=== PATIENT | male | born 1945 | race Caucasian/White ===

== ENCOUNTER 2018-08-22 05:05 | Inpatient (IN) | payer MEDICARE, BC ==
[2018-08-15 13:09] LABS: BASOPHILS # (AUTO) 0.6 X10'3 (0-0.2); BASOPHILS % (AUTO) 1.6 % (0-1); EOSINOPHILS # (AUTO) 0.1 X10'3 (0-0.9); EOSINOPHILS % (AUTO) 0.1 % (0-6); HEMATOCRIT 31.8 % (42.0-52.0); HEMOGLOBIN 10.4 g/dl (14.0-17.9); LYMPHOCYTES # (AUTO) 33.6 X10'3 (1.1-4.8); LYMPHOCYTES % (AUTO) 84.4 % (21-51); MEAN CORPUSCULAR HEMOGLOBIN 31.6 PG (27.0-31.0); MEAN CORPUSCULAR HGB CONC 32.7 % (33.0-36.5); MEAN CORPUSCULAR VOLUME 96.5 FL (78-98); MONOCYTES # (AUTO) 1.1 X10'3 (0-0.9); MONOCYTES % (AUTO) 2.7 % (2-12); NEUTROPHILS # (AUTO) 4.5 X10'3 (1.8-7.7); NEUTROPHILS % (AUTO) 11.2 % (42-75); PLATELET COUNT 149 X10'3 (140-440); RED CELL DISTRIBUTION WIDTH 17.9 % (11.5-14.5)
[2018-08-15 13:10] LABS: ALBUMIN 3.6 G/DL (3.4-5.0); ANION GAP 9 (8-16); BLOOD UREA NITROGEN 22 MG/DL (7-18); BUN/CREATININE RATIO 16.8 (5.4-32.0); CALCIUM 8.8 MG/DL (8.5-10.1); CHLORIDE 104 MMOL/L (99-107); CREATININE 1.31 MG/DL (0.60-1.10); GLUCOSE 88 MG/DL (70-104); POTASSIUM 4.5 MMOL/L (3.5-5.1); SODIUM 141 MMOL/L (135-145); TOTAL CARBON DIOXIDE 28.5 MMOL/L (24-32); eGFR 54 ML/MIN
[2018-08-15 13:23] LABS: INR 1.1 INR; PARTIAL THROMBOPLASTIN TIME 27 SECONDS (22-32); PROTHROMBIN TIME 10.9 SECONDS (9.0-12.0)
[2018-08-15 13:26] LABS: WHITE BLOOD COUNT 39.8 X10'3 (4.5-11.0)
[2018-08-15 13:31] LABS: TOTAL CELLS COUNTED 100
[2018-08-15 13:32] LABS: ANISOCYTOSIS 2+; PLATELET ESTIMATE NORMAL; SMUDGE CELLS 2+
[2018-08-22] VITALS (23 sets, daily range): BP systolic 108–137; BP diastolic 55–79
[~2018-08-22] VITALS: Ht 190.5 cm; Wt 104.6 kg
[~2018-08-22 05:05] MED LIST: AMLO5TAB PO; POTA20TA19 PO
[2018-08-22] MEDS ORDERED: diphenhydrAMINE 25mg capsule PO PRN ×2 (05:30→13:15)
[2018-08-22] MEDS ORDERED: LORazepam 0.5 MG tablet PO PRN (05:30)
[2018-08-22] MEDS ORDERED: METO50TA17 PO (05:51)
[2018-08-22] MEDS ORDERED: MULT-1085 PO (05:51)
[2018-08-22] MEDS ORDERED: APIX5TAB3 PO (05:51)
[2018-08-22] MEDS ORDERED: FEXO-25 PO (05:51)
[2018-08-22] MEDS ORDERED: TADA5TAB2 PO (05:51)
[2018-08-22] MEDS ORDERED: AMLO5TAB PO (05:51)
[2018-08-22] MEDS ORDERED: CHOL2000 PO (05:51)
[2018-08-22] MEDS ORDERED: ATOR80TA PO (05:51)
[2018-08-22] MEDS ORDERED: OMEP20TA23 PO (05:51)
[2018-08-22] MEDS: normal saline 1000ml 1,000 ML IV SCH ×2 (05:55→15:30)
[2018-08-22] MEDS ORDERED: fentaNYL/PF 50MCG/1 ML 2ML syringe ONE (06:01)
[2018-08-22] MEDS ORDERED: midazolam 2 mg/2 ml injection ONE (06:01)
[2018-08-22] MEDS ORDERED: iohexol 350MG/ML 100ml bottle IV ONE (06:01)
[2018-08-22] MEDS ORDERED: LIDOcaine 1% 30ml preserv. free vial ONE (06:01)
[2018-08-22] MEDS: amLODIPine 5mg tablet PO SCH ×2 (08:00→19:53)
[2018-08-22] MEDS: multivitamins, therapeutics tablet PO SCH (08:00)
[2018-08-22] MEDS: sildenafil citrate 20mg tablet PO SCH (08:00)
[2018-08-22] MEDS: vitamin D (cholecalciferol) 1,000 unit tablet PO SCH (08:00)
[2018-08-22] MEDS: pantoprazole 40mg Tablet.DR PO SCH (08:00)
[2018-08-22] MEDS ORDERED: metoprolol tartrate 25mg tablet PO SCH (08:00)
[2018-08-22] MEDS: cetirizine 10mg tablet PO SCH (08:00)
[2018-08-22] MEDS ORDERED: MESSAGE TO NURSING PO ONE (13:05)
[2018-08-22] MEDS ORDERED: dextrose 50%-water 50ml dispensing syringe IV PRN (13:05)
[2018-08-22] MEDS ORDERED: HYDROcodone/acetaminophen 5mg/325mg tablet PO PRN (13:15)
[2018-08-22] MEDS ORDERED: ondansetron/PF 4mg/2ml inj IV PRN (13:15)
[2018-08-22] MEDS ORDERED: epiNEPHrine 0.1mg/ml 10ml syringe ONE (14:00)
[2018-08-22] MEDS ORDERED: albumin (human) 25% 100 ML IV solution IV ONE (14:00)
[2018-08-22] MEDS ORDERED: magnesium 1 GM/2 ML inj ONE (14:00)
[2018-08-22] MEDS ORDERED: LIDOcaine 2% (20 mg/ml) 5ml cardiac syringe ONE (14:00)
[2018-08-22] MEDS ORDERED: calcium chloride 100 MG/1 ML inj IV ONE ×2 (14:00)
[2018-08-22] MEDS ORDERED: sodium chloride 0.9% 10ml vial - diluent IJ ONE ×3 (14:00)
[2018-08-22] MEDS ORDERED: atropine 0.1mg/ml 10ml syringe ONE (14:00)
[2018-08-22] MEDS ORDERED: heparin 10,000 units/1 ML INJ ONE (14:00)
[2018-08-22] MEDS ORDERED: naloxone 0.4 mg/ml inj ONE (14:00)
[2018-08-22] MEDS ORDERED: heparin 1,000 units/ml 10ml inj ONE (14:00)
[2018-08-22] MEDS ORDERED: phenylephrine 10mg/ml inj. ONE (14:00)
[2018-08-22] MEDS ORDERED: sodium bicarbonate (8.4%) 1 mEq/ml syringe ONE ×4 (14:00)
[2018-08-22] MEDS ORDERED: aminocaproic acid 250 MG/1 ML inj. ONE (14:00)
[2018-08-22] MEDS ORDERED: dextrose 50%-water 50ml dispensing syringe IV ONE ×2 (14:00)
[2018-08-22 15:55] LABS: HEMATOCRIT 30.5 % (42.0-52.0); MEAN CORPUSCULAR HGB CONC 32.8 % (33.0-36.5); MEAN CORPUSCULAR VOLUME 97.7 FL (78-98); PLATELET COUNT 139 X10'3 (140-440); RED BLOOD COUNT 3.12 X10'6 (4.70-6.10); RED CELL DISTRIBUTION WIDTH 18.1 % (11.5-14.5)
[2018-08-22 15:58] LABS: ALBUMIN 3.4 G/DL (3.4-5.0); ANION GAP 9 (8-16); BLOOD UREA NITROGEN 19 MG/DL (7-18); BUN/CREATININE RATIO 15.8 (5.4-32.0); CALCIUM 8.5 MG/DL (8.5-10.1); CHLORIDE 104 MMOL/L (99-107); GLUCOSE 146 MG/DL (70-104); POTASSIUM 3.8 MMOL/L (3.5-5.1); SODIUM 140 MMOL/L (135-145); TOTAL CARBON DIOXIDE 26.7 MMOL/L (24-32); WHITE BLOOD COUNT 43.8 X10'3 (4.5-11.0); eGFR 60 ML/MIN
[2018-08-22 16:06] LABS: ABG BASE EXCESS -0.3 mmol/L (-2.0-3.0); ABG OXYGEN SATURATION 98.2 % (95-98); ABG PCO2 (T) 28.5 mmHg (35.0-48.0); ABG PH (T) 7.506 (7.350-7.450); ABG PO2 (T) 115.6 mmHg (83-108); ALLEN'S TEST Positive; FCOHb 0.3 % (0.5-1.5); FMetHb 0.3 % (0.3-1.12); FO2Hb 97.6 % (94-100); TOTAL HEMOGLOBIN 10.7 G/dl (14.0-18.0)
[2018-08-22 16:13] LABS: HEMOGLOBIN A1C 5.4 % (4.5-6.2)
[2018-08-22 16:25] LABS: PARTIAL THROMBOPLASTIN TIME 25 SECONDS (22-32); PROTHROMBIN TIME 10.5 SECONDS (9.0-12.0)
[2018-08-22] MEDS: metoprolol tartrate 12.5mg (1/2 tablet) PO SCH (19:53)
[2018-08-22] MEDS: atorvastatin 20mg tablet PO SCH (21:06)
[2018-08-23] MEDS: normal saline 1000ml 1,000 ML IV SCH (01:30)
[2018-08-23 03:00] VITALS: BP 115/65
[2018-08-23 06:00] VITALS: BP 103/61
[2018-08-23] MEDS: sildenafil citrate 20mg tablet PO SCH (07:53)
[2018-08-23] MEDS: multivitamins, therapeutics tablet PO SCH (07:53)
[2018-08-23] MEDS: amLODIPine 5mg tablet PO SCH ×2 (07:53→20:08)
[2018-08-23] MEDS: pantoprazole 40mg Tablet.DR PO SCH (07:53)
[2018-08-23] MEDS: metoprolol tartrate 12.5mg (1/2 tablet) PO SCH ×2 (07:54→20:08)
[2018-08-23] MEDS: vitamin D (cholecalciferol) 1,000 unit tablet PO SCH (07:54)
[2018-08-23] MEDS: cetirizine 10mg tablet PO SCH (07:54)
[2018-08-23 11:00] VITALS: BP 112/58
[2018-08-23] MEDS ORDERED: ringers solution, lacted 1,000 ML IV ONE (11:16)
[2018-08-23 15:00] VITALS: BP 119/62
[2018-08-23] MEDS ORDERED: MESSAGE TO NURSING PO ONE (17:30)
[2018-08-23 19:00] VITALS: BP 138/67
[2018-08-23] MEDS: atorvastatin 20mg tablet PO SCH (21:00)
[2018-08-23 23:00] VITALS: BP 110/59
[2018-08-24] VITALS (18 sets, daily range): BP systolic 64–142; BP diastolic 48–80
[2018-08-24] MEDS ORDERED: MESSAGE TO NURSING PO ONE ×3 (01:30→05:30)
[2018-08-24 05:21] LABS: BASOPHILS # (AUTO) 0.7 X10'3 (0-0.2); BASOPHILS % (AUTO) 1.6 % (0-1); EOSINOPHILS # (AUTO) 0.2 X10'3 (0-0.9); EOSINOPHILS % (AUTO) 0.4 % (0-6); HEMATOCRIT 31.5 % (42.0-52.0); HEMOGLOBIN 10.5 g/dl (14.0-17.9); LYMPHOCYTES # (AUTO) 34.1 X10'3 (1.1-4.8); MEAN CORPUSCULAR HEMOGLOBIN 32.2 PG (27.0-31.0); MEAN CORPUSCULAR HGB CONC 33.4 % (33.0-36.5); MEAN CORPUSCULAR VOLUME 96.6 FL (78-98); MEAN PLATELET VOLUME 8.8 FL (7.4-10.4); MONOCYTES # (AUTO) 1.8 X10'3 (0-0.9); MONOCYTES % (AUTO) 4.3 % (2-12); NEUTROPHILS # (AUTO) 3.9 X10'3 (1.8-7.7); NEUTROPHILS % (AUTO) 9.7 % (42-75); PLATELET COUNT 137 X10'3 (140-440); RED BLOOD COUNT 3.27 X10'6 (4.70-6.10); RED CELL DISTRIBUTION WIDTH 17.6 % (11.5-14.5)
[2018-08-24 05:26] LABS: PROTHROMBIN TIME 10.5 SECONDS (9.0-12.0)
[2018-08-24] MEDS ORDERED: vancomycin/NS 1 GM ADD-VANTAGE 250 ML IV ONE (05:30)
[2018-08-24] MEDS ORDERED: cefazolin/dext.iso 2gm/50ml 50 ML IV ONE (05:30)
[2018-08-24] MEDS: insulin regular, human inj. 100 UNITS in normal saline 100ml IV soln 100 ML IV SCH ×2 (05:30)
[2018-08-24 05:33] LABS: ALBUMIN 3.4 G/DL (3.4-5.0); ANION GAP 9 (8-16); BLOOD UREA NITROGEN 20 MG/DL (7-18); BUN/CREATININE RATIO 17.4 (5.4-32.0); CALCIUM 8.7 MG/DL (8.5-10.1); CHLORIDE 104 MMOL/L (99-107); CREATININE 1.15 MG/DL (0.60-1.10); GLUCOSE 101 MG/DL (70-104); POTASSIUM 3.9 MMOL/L (3.5-5.1); SODIUM 140 MMOL/L (135-145); TOTAL CARBON DIOXIDE 26.6 MMOL/L (24-32); eGFR 63 ML/MIN
[2018-08-24] MEDS ORDERED: famotidine 20mg tablet PO ONE (06:00)
[2018-08-24 06:37] LABS: WHITE BLOOD COUNT 40.5 X10'3 (4.5-11.0)
[2018-08-24 07:23] LABS: ANISOCYTOSIS 2+; PLATELET ESTIMATE NORMAL; POLYCHROMASIA 1+; SMUDGE CELLS 3+; TOTAL CELLS COUNTED 100
[2018-08-24] MEDS: pantoprazole 40mg Tablet.DR PO SCH (07:23)
[2018-08-24] MEDS: metoprolol tartrate 12.5mg (1/2 tablet) PO SCH (07:23)
[2018-08-24 07:24] LABS: MICROCYTOSIS 1+; POIKILOCYTOSIS 1+
[2018-08-24] MEDS: sildenafil citrate 20mg tablet PO SCH (08:00)
[2018-08-24] MEDS: multivitamins, therapeutics tablet PO SCH (08:00)
[2018-08-24] MEDS: amLODIPine 5mg tablet PO SCH (08:00)
[2018-08-24] MEDS: cetirizine 10mg tablet PO SCH (08:00)
[2018-08-24] MEDS: vitamin D (cholecalciferol) 1,000 unit tablet PO SCH (08:00)
[2018-08-24] MEDS ORDERED: mupirocin 2% nasal ointment 1gm UD NS SCH (08:00)
[2018-08-24] MEDS: insulin Lispro (HumaLOG) vial - multi-dose SQ SCH ×3 (09:00→17:56)
[2018-08-24] MEDS ORDERED: LORazepam 2 mg/ml vial IV ONE (12:00)
[2018-08-24] MEDS ORDERED: SUfentanil 50mcg/ml 1ml amp IV ONE ×2 (13:17)
[2018-08-24] MEDS ORDERED: MIDAZolam 1mg/ml 10ml vial ONE (13:17)
[2018-08-24] MEDS ORDERED: pancuronium br 1mg/ml inj IV ONE (13:18)
[2018-08-24] MEDS ORDERED: etomidate 2mg/ml inj. ONE (13:18)
[2018-08-24] MEDS ORDERED: sevoflurane 250ml liquid IH ONE (13:27)
[2018-08-24] MEDS ORDERED: nitroGLYCERIN in D5W 50mg/250ml (Tridil) infusion IV ONE (13:27)
[2018-08-24] MEDS ORDERED: aminocaproic acid 250 MG/1 ML inj. ONE (13:27)
[2018-08-24] MEDS ORDERED: protamine sulf. 10mg/ml inj. IV ONE (13:27)
[2018-08-24 14:10] LABS: ABG BASE EXCESS -0.4 mmol/L (-2.0-3.0); ABG HCO3 25.1 mmol/L (22.0-26.0); ABG PCO2 44.6 mmHg (35.0-45.0); ABG PH 7.368 (7.350-7.450); ABG PO2 239.3 mmHg (60.0-100.0); CL (ABG) 106 mmol/L (99-107); FMetHb 0.7 % (0.3-1.12); FO2Hb 97.3 % (94-100); GLUCOSE (ABG) 106 mg/dl (70-105); IONIZED CA (ABG) 1.14 mmol/L (1.03-1.32); K (ABG) 4.5 mmol/L (3.3-5.1); NA (ABG) 134 mmol/L (135-145); TOTAL HEMOGLOBIN 10.7 G/dl (14.0-18.0)
[2018-08-24 14:40] LABS: ABG BASE EXCESS VENOUS -0.6 mmol/L; ABG HCO3 VENOUS 25.1 mmol/L; ABG PO2 VENOUS 34.6 mmHg; CL (ABG) 104 mmol/L (99-107); FCOHb VENOUS 1.2 %; FHHb VENOUS 39.1 %; FMetHb VENOUS 0.4 %; FO2Hb VENOUS 59.3 %; GLUCOSE (ABG) 124 mg/dl (70-105); K (ABG) 4.6 mmol/L (3.3-5.1); NA (ABG) 133 mmol/L (135-145); TOTAL HEMOGLOBIN 9.8 G/dl (14.0-18.0)
[2018-08-24 14:50] LABS: ABG HCO3 22.6 mmol/L (22.0-26.0); ABG OXYGEN SATURATION 99.3 % (95-98); ABG PCO2 37.5 mmHg (35.0-45.0); ABG PH 7.398 (7.350-7.450); ABG PO2 490.4 mmHg (60.0-100.0); CL (ABG) 103 mmol/L (99-107); FCOHb 0.9 % (0.5-1.5); FMetHb 0.7 % (0.3-1.12); FO2Hb 97.7 % (94-100); GLUCOSE (ABG) 108 mg/dl (70-105); IONIZED CA (ABG) 0.98 mmol/L (1.03-1.32); K (ABG) 4.6 mmol/L (3.3-5.1); NA (ABG) 132 mmol/L (135-145); TOTAL HEMOGLOBIN 7.3 G/dl (14.0-18.0)
[2018-08-24 14:55] LABS: ABG BASE EXCESS VENOUS -1.1 mmol/L; ABG HCO3 VENOUS 24.4 mmol/L; ABG PCO2 VENOUS 44.6 mmHg; ABG PO2 VENOUS 45.9 mmHg; CL (ABG) 103 mmol/L (99-107); FCOHb VENOUS 1.4 %; FHHb VENOUS 22.2 %; FMetHb VENOUS 0.9 %; FO2Hb VENOUS 75.5 %; GLUCOSE (ABG) 126 mg/dl (70-105); IONIZED CA (ABG) 1.01 mmol/L (1.03-1.32); K (ABG) 5.4 mmol/L (3.3-5.1); NA (ABG) 132 mmol/L (135-145); TOTAL HEMOGLOBIN 7.5 G/dl (14.0-18.0)
[2018-08-24 15:01] LABS: ABG BASE EXCESS -1.2 mmol/L (-2.0-3.0); ABG HCO3 23.9 mmol/L (22.0-26.0); ABG OXYGEN SATURATION 99.4 % (95-98); ABG PCO2 41.8 mmHg (35.0-45.0); ABG PH 7.375 (7.350-7.450); ABG PO2 475.7 mmHg (60.0-100.0); CL (ABG) 104 mmol/L (99-107); FCOHb 1.1 % (0.5-1.5); FMetHb 0.8 % (0.3-1.12); FO2Hb 97.5 % (94-100); GLUCOSE (ABG) 138 mg/dl (70-105); IONIZED CA (ABG) 1.01 mmol/L (1.03-1.32); K (ABG) 5.5 mmol/L (3.3-5.1); NA (ABG) 132 mmol/L (135-145); TOTAL HEMOGLOBIN 7.5 G/dl (14.0-18.0)
[2018-08-24 15:21] LABS: ABG BASE EXCESS -2.7 mmol/L (-2.0-3.0); ABG HCO3 23.6 mmol/L (22.0-26.0); ABG OXYGEN SATURATION 99.5 % (95-98); ABG PCO2 48.3 mmHg (35.0-45.0); ABG PH 7.306 (7.350-7.450); ABG PO2 522.9 mmHg (60.0-100.0); CL (ABG) 104 mmol/L (99-107); FCOHb 0.9 % (0.5-1.5); FMetHb 0.8 % (0.3-1.12); FO2Hb 97.8 % (94-100); GLUCOSE (ABG) 185 mg/dl (70-105); IONIZED CA (ABG) 1.04 mmol/L (1.03-1.32); K (ABG) 6.1 mmol/L (3.3-5.1); NA (ABG) 131 mmol/L (135-145); TOTAL HEMOGLOBIN 7.6 G/dl (14.0-18.0)
[2018-08-24 15:26] LABS: ACT @ 1.70 U 272 SEC (193-297); ACT @ 2.84 U 411 SEC (260-420); BASELINE ACT 122 SEC (101-148)
[2018-08-24 15:56] LABS: ABG BASE EXCESS 8.9 mmol/L (-2.0-3.0); ABG HCO3 33.2 mmol/L (22.0-26.0); ABG PH 7.486 (7.350-7.450); ABG PO2 363.3 mmHg (60.0-100.0); CL (ABG) 104 mmol/L (99-107); FCOHb 0.8 % (0.5-1.5); FMetHb 0.8 % (0.3-1.12); FO2Hb 97.4 % (94-100); GLUCOSE (ABG) 149 mg/dl (70-105); IONIZED CA (ABG) 1.42 mmol/L (1.03-1.32); K (ABG) 5.8 mmol/L (3.3-5.1); NA (ABG) 141 mmol/L (135-145); TOTAL HEMOGLOBIN 7.7 G/dl (14.0-18.0)
[2018-08-24 15:56] LABS: ABG BASE EXCESS -5.4 mmol/L (-2.0-3.0); ABG HCO3 22.4 mmol/L (22.0-26.0); ABG OXYGEN SATURATION 98.9 % (95-98); ABG PCO2 57.3 mmHg (35.0-45.0); ABG PH 7.209 (7.350-7.450); ABG PO2 272.8 mmHg (60.0-100.0); CL (ABG) 102 mmol/L (99-107); FCOHb 0.7 % (0.5-1.5); FMetHb 0.8 % (0.3-1.12); FO2Hb 97.4 % (94-100); GLUCOSE (ABG) 155 mg/dl (70-105); NA (ABG) 130 mmol/L (135-145); TOTAL HEMOGLOBIN 7.8 G/dl (14.0-18.0)
[2018-08-24] MEDS ORDERED: fentaNYL /PF 50mcg/ml 5ml ampule ONE (16:05)
[2018-08-24 16:10] LABS: ABG BASE EXCESS VENOUS -3.5 mmol/L; ABG HCO3 VENOUS 22.9 mmol/L; ABG PCO2 VENOUS 48.1 mmHg; ABG PO2 VENOUS 42.6 mmHg; CL (ABG) 102 mmol/L (99-107); FCOHb VENOUS 1.2 %; FHHb VENOUS 29.8 %; FMetHb VENOUS 0.7 %; FO2Hb VENOUS 68.3 %; GLUCOSE (ABG) 155 mg/dl (70-105); IONIZED CA (ABG) 1.16 mmol/L (1.03-1.32); K (ABG) 4.6 mmol/L (3.3-5.1); NA (ABG) 133 mmol/L (135-145); TOTAL HEMOGLOBIN 8.3 G/dl (14.0-18.0)
[2018-08-24] MEDS ORDERED: albumin (Human) 5% 250ml 250 ML IV ONE ×3 (16:27→20:50)
[2018-08-24] MEDS ORDERED: nitroGLYCERIN-Tridil 50MG/D5W 250 ML IV PRN (16:38)
[2018-08-24] MEDS ORDERED: niCARDipine-NS 40mg/200ml IVPB 200 ML IV PRN (16:38)
[2018-08-24] MEDS ORDERED: DOPamine 400mg/D5W 250ml 250 ML IV PRN (16:38)
[2018-08-24] MEDS ORDERED: pantoprazole 40 MG vial IV ONE (16:40)
[2018-08-24] MEDS ORDERED: magnesium 4gm in 100ml NS 100 ML IV PRN (16:40)
[2018-08-24] MEDS ORDERED: insulin regular, human inj. 100 UNITS in normal saline 100ml IV soln 100 ML IV SCH ×2 (16:40)
[2018-08-24] MEDS ORDERED: metoclopramide 5 mg/ml inj IV PRN (16:40)
[2018-08-24] MEDS ORDERED: magnesium hydroxide 30ml (MOM) UD suspension PO PRN (16:40)
[2018-08-24] MEDS ORDERED: acetaminophen 325mg tablet PO PRN (16:40)
[2018-08-24] MEDS ORDERED: potassium Cl 20mEq/100mL bag 100 ML IV PRN ×3 (16:40)
[2018-08-24] MEDS ORDERED: ondansetron/PF 4mg/2ml inj IV PRN (16:40)
[2018-08-24] MEDS ORDERED: sodium phosphate inj. 30 MMOL in dextrose 5%-water 250 ML IV PRN (16:40)
[2018-08-24] MEDS ORDERED: HYDROcodone/acetaminophen 10/325mg tab PO PRN ×2 (16:40)
[2018-08-24] MEDS ORDERED: sodium phosphate inj. 15 MMOL in dextrose 5%-water 150 ML IV PRN (16:40)
[2018-08-24] MEDS ORDERED: Neutra Phos packet PO PRN (16:40)
[2018-08-24] MEDS ORDERED: magnesium 2GM in 50ml NS 50 ML IV PRN (16:40)
[2018-08-24] MEDS ORDERED: dextrose 50%-water 50ml dispensing syringe IV PRN (16:40)
[2018-08-24] MEDS ORDERED: morphine 4 MG/ML inj SYRINge IV PRN (16:40)
[2018-08-24] MEDS ORDERED: normal saline 250ml IV soln 250 ML IV PRN (16:40)
[2018-08-24] MEDS: morphine 4 MG/ML inj SYRINge IV PRN ×3 (17:12→23:43)
[2018-08-24 17:14] LABS: HEMATOCRIT 25.4 % (42.0-52.0); HEMOGLOBIN 8.2 g/dl (14.0-17.9); MEAN CORPUSCULAR HEMOGLOBIN 31.6 PG (27.0-31.0); MEAN CORPUSCULAR HGB CONC 32.3 % (33.0-36.5); MEAN PLATELET VOLUME 8.6 FL (7.4-10.4); PLATELET COUNT 110 X10'3 (140-440); RED BLOOD COUNT 2.59 X10'6 (4.70-6.10); RED CELL DISTRIBUTION WIDTH 17.7 % (11.5-14.5)
[2018-08-24 17:21] LABS: ABG BASE EXCESS -1.1 mmol/L (-2.0-3.0); ABG HCO3 24.5 mmol/L (22.0-26.0); ABG PCO2 (T) 45.3 mmHg (35.0-48.0); ABG PH (T) 7.352 (7.350-7.450); ABG PO2 (T) 136.9 mmHg (83-108); FCOHb 0.3 % (0.5-1.5); FMetHb 0.1 % (0.3-1.12); FO2Hb 97.6 % (94-100); MINUTE VOLUME 10 L/min; PATIENT TEMPERATURE 37.2; PEEP 5 cm H2O; RESPIRATORY RATE 14 b/min; RESPIRATORY RATE (OBSERVED) 14 b/min; TIDAL VOLUME 700 mL; TOTAL HEMOGLOBIN 9.7 G/dl (14.0-18.0)
[2018-08-24 17:27] LABS: ALANINE AMINOTRANSFERASE 25 U/L (12-78); ALBUMIN 3.1 G/DL (3.4-5.0); ALBUMIN/GLOBULIN RATIO 1.6 (1.1-1.5); ALKALINE PHOSPHATASE 112 IU/L (46-116); ANION GAP 13 (8-16); ASPARTATE AMINO TRANSFERASE 52 U/L (10-37); BILIRUBIN,TOTAL 1.7 MG/DL (0.1-1.0); BLOOD UREA NITROGEN 24 MG/DL (7-18); CALCIUM 8.4 MG/DL (8.5-10.1); CHLORIDE 103 MMOL/L (99-107); CREATININE 1.71 MG/DL (0.60-1.10); GLUCOSE 158 MG/DL (70-104); MAGNESIUM 2.7 MG/DL (1.5-2.4); PHOSPHORUS 7.3 MG/DL (2.3-4.5); POTASSIUM 5.3 MMOL/L (3.5-5.1); SODIUM 140 MMOL/L (135-145); TOTAL CARBON DIOXIDE 24.1 MMOL/L (24-32); eGFR 40 ML/MIN
[2018-08-24 17:34] LABS: WHITE BLOOD COUNT 53.1 X10'3 (4.5-11.0)
[2018-08-24 17:36] LABS: INR 1.2 INR; PARTIAL THROMBOPLASTIN TIME 36 SECONDS (22-32)
[2018-08-24] MEDS: sodium chloride 0.45% 1,000 ML IV SCH (17:56)
[2018-08-24] MEDS: NORepinephrine 8mg/ 250ml NS 250 ML IV SCH (17:58)
[2018-08-24 18:00] LABS: ANISOCYTOSIS 2+; PLATELET ESTIMATE DECREASED; POLYCHROMASIA FEW; SCHISTOCYTES FEW; SMUDGE CELLS 3+; TOTAL CELLS COUNTED 100
[2018-08-24] MEDS: albumin (Human) 5% 250ml 250 ML IV PRN ×3 (18:48→20:54)
[2018-08-24] MEDS: mupirocin 2% ointment 22GM NS SCH (19:19)
[2018-08-24] MEDS: vancomycin/NS 1 GM ADD-VANTAGE 250 ML IV SCH (19:19)
[2018-08-24] MEDS: docusate sod 100mg capsule PO SCH (19:20)
[2018-08-24 23:24] LABS: MEAN CORPUSCULAR HEMOGLOBIN 30.5 PG (27.0-31.0); MEAN CORPUSCULAR HGB CONC 29.6 % (33.0-36.5); MEAN CORPUSCULAR VOLUME 103.2 FL (78-98); MEAN PLATELET VOLUME 8.4 FL (7.4-10.4); PLATELET COUNT 159 X10'3 (140-440); RED BLOOD COUNT 1.89 X10'6 (4.70-6.10); RED CELL DISTRIBUTION WIDTH 18.6 % (11.5-14.5)
[2018-08-24] MEDS: ceFAZolin 1GM/D5W- ADD-VANTAGE 50 ML IV SCH (23:32)
[2018-08-24 23:42] LABS: ALBUMIN 3.7 G/DL (3.4-5.0); ANION GAP 23 (8-16); BLOOD UREA NITROGEN 32 MG/DL (7-18); BUN/CREATININE RATIO 12.3 (5.4-32.0); CALCIUM 8.5 MG/DL (8.5-10.1); CHLORIDE 104 MMOL/L (99-107); GLUCOSE 137 MG/DL (70-104); MAGNESIUM 2.9 MG/DL (1.5-2.4); PHOSPHORUS 9.1 MG/DL (2.3-4.5); SODIUM 144 MMOL/L (135-145); TOTAL CARBON DIOXIDE 16.9 MMOL/L (24-32); eGFR 24 ML/MIN
[2018-08-24 23:43] LABS: POTASSIUM 6.1 MMOL/L (3.5-5.1)
[2018-08-24 23:46] LABS: WHITE BLOOD COUNT 114.8 X10'3 (4.5-11.0)
[2018-08-24 23:47] LABS: HEMATOCRIT 19.5 % (42.0-52.0); HEMOGLOBIN 5.8 g/dl (14.0-17.9)
[2018-08-25] VITALS (40 sets, daily range): BP systolic 39–112; BP diastolic 18–57
[2018-08-25 00:16] LABS: TOTAL CELLS COUNTED 100
[2018-08-25 00:19] LABS: ANISOCYTOSIS 2+; PLATELET ESTIMATE NORMAL; POLYCHROMASIA FEW; SCHISTOCYTES FEW
[2018-08-25 00:20] LABS: SMUDGE CELLS 3+; TEAR DROP CELLS FEW
[2018-08-25] MEDS: NORepinephrine 8mg/ 250ml NS 250 ML IV SCH ×4 (00:29→19:43)
[2018-08-25 02:25] LABS: HEMATOCRIT 26.5 % (42.0-52.0); HEMOGLOBIN 8.3 g/dl (14.0-17.9); MEAN CORPUSCULAR HEMOGLOBIN 31.6 PG (27.0-31.0); MEAN CORPUSCULAR HGB CONC 31.3 % (33.0-36.5); MEAN PLATELET VOLUME 8.5 FL (7.4-10.4); PLATELET COUNT 152 X10'3 (140-440); RED BLOOD COUNT 2.62 X10'6 (4.70-6.10)
[2018-08-25 02:38] LABS: ALANINE AMINOTRANSFERASE 74 U/L (12-78); ALBUMIN 3.6 G/DL (3.4-5.0); ALBUMIN/GLOBULIN RATIO 1.7 (1.1-1.5); ALKALINE PHOSPHATASE 118 IU/L (46-116); ANION GAP 27 (8-16); ASPARTATE AMINO TRANSFERASE 134 U/L (10-37); BLOOD UREA NITROGEN 38 MG/DL (7-18); BUN/CREATININE RATIO 11.9 (5.4-32.0); CALCIUM 8.1 MG/DL (8.5-10.1); CHLORIDE 104 MMOL/L (99-107); CREATININE 3.19 MG/DL (0.60-1.10); GLUCOSE 118 MG/DL (70-104); MAGNESIUM 3.1 MG/DL (1.5-2.4); SODIUM 143 MMOL/L (135-145); TOTAL PROTEIN 5.7 G/DL (6.4-8.2); eGFR 19 ML/MIN
[2018-08-25 02:40] LABS: PHOSPHORUS 12.5 MG/DL (2.3-4.5); WHITE BLOOD COUNT 140.7 X10'3 (4.5-11.0)
[2018-08-25 02:42] LABS: POTASSIUM 6.7 MMOL/L (3.5-5.1)
[2018-08-25 02:43] LABS: TOTAL CARBON DIOXIDE 11.7 MMOL/L (24-32)
[2018-08-25] MEDS ORDERED: furosemide 40mg/4ml inj ONE (02:59)
[2018-08-25 03:00] LABS: INR 1.3 INR; PARTIAL THROMBOPLASTIN TIME 39 SECONDS (22-32); PROTHROMBIN TIME 13.4 SECONDS (9.0-12.0)
[2018-08-25] MEDS ORDERED: furosemide 40mg/4ml inj IV ONE (03:00)
[2018-08-25] MEDS: morphine 4 MG/ML inj SYRINge IV PRN ×6 (03:01→13:41)
[2018-08-25 03:36] LABS: ABG HCO3 11.2 mmol/L (22.0-26.0); ABG OXYGEN SATURATION 91.2 % (95-98); ABG PCO2 (T) 33.1 mmHg (35.0-48.0); ABG PH (T) 7.155 (7.350-7.450); ABG PO2 (T) 79.7 mmHg (83-108); FCOHb 0.3 % (0.5-1.5); FMetHb 0.2 % (0.3-1.12); FO2Hb 90.7 % (94-100); MINUTE VOLUME 21 L/min; PATIENT TEMPERATURE 38.2; PEEP 5 cm H2O; RESPIRATORY RATE 10 b/min; RESPIRATORY RATE (OBSERVED) 29 b/min; TIDAL VOLUME 700 mL; TOTAL HEMOGLOBIN 9.3 G/dl (14.0-18.0)
[2018-08-25] MEDS ORDERED: sodium bicarbonate (8.4%) 1 mEq/ml syringe ONE (03:43)
[2018-08-25] MEDS ORDERED: sodium bicarbonate (8.4%) 1 mEq/ml syringe IV ONE ×10 (03:45→22:05)
[2018-08-25 03:46] LABS: TOTAL CELLS COUNTED 100
[2018-08-25 03:49] LABS: ANISOCYTOSIS 2+; BURR CELLS 1+; PLATELET ESTIMATE NORMAL; POLYCHROMASIA FEW; SMUDGE CELLS 3+; TEAR DROP CELLS FEW
[2018-08-25 05:05] LABS: ACTIVATED CLOTTING TIME 117 SEC (101-148)
[2018-08-25] MEDS: insulin regular, human inj. 100 UNITS in normal saline 100ml IV soln 100 ML IV SCH ×2 (05:30)
[2018-08-25 05:41] LABS: ABG BASE EXCESS -14.1 mmol/L (-2.0-3.0); ABG HCO3 11.8 mmol/L (22.0-26.0); ABG OXYGEN SATURATION 93.1 % (95-98); ABG PCO2 (T) 29.9 mmHg (35.0-48.0); ABG PH (T) 7.223 (7.350-7.450); ABG PO2 (T) 86.4 mmHg (83-108); FCOHb 0.3 % (0.5-1.5); FMetHb 0.5 % (0.3-1.12); FO2Hb 92.4 % (94-100); PATIENT TEMPERATURE 38.5; PEEP 5 cm H2O; RESPIRATORY RATE 10 b/min; RESPIRATORY RATE (OBSERVED) 29 b/min; TIDAL VOLUME 700 mL; TOTAL HEMOGLOBIN 8.6 G/dl (14.0-18.0)
[2018-08-25 07:31] LABS: ABG BASE EXCESS -16.7 mmol/L (-2.0-3.0); ABG HCO3 11.6 mmol/L (22.0-26.0); ABG OXYGEN SATURATION 91.2 % (95-98); ABG PCO2 (T) 40.5 mmHg (35.0-48.0); ABG PH (T) 7.086 (7.350-7.450); ABG PO2 (T) 89.6 mmHg (83-108); ALLEN'S TEST Positive; FCOHb 0.3 % (0.5-1.5); FMetHb 0.3 % (0.3-1.12); FO2Hb 90.7 % (94-100); PATIENT TEMPERATURE 38.8; TOTAL HEMOGLOBIN 8.7 G/dl (14.0-18.0)
[2018-08-25 07:33] LABS: K (ABG) 6.3 mmol/L (3.3-5.1)
[2018-08-25] MEDS: vitamin D (cholecalciferol) 1,000 unit tablet PO SCH (08:00)
[2018-08-25] MEDS: cetirizine 10mg tablet PO SCH (08:00)
[2018-08-25] MEDS: aspirin 325mg tablet, delayed-release (Ecotrin) PO SCH (08:00)
[2018-08-25] MEDS: multivitamins, therapeutics tablet PO SCH (08:00)
[2018-08-25] MEDS: atorvastatin 10mg tablet PO SCH (08:00)
[2018-08-25] MEDS: docusate sod 100mg capsule PO SCH ×2 (08:00→20:00)
[2018-08-25] MEDS: metoprolol tartrate 12.5mg (1/2 tablet) PO SCH ×2 (08:00→20:00)
[2018-08-25] MEDS: mupirocin 2% ointment 22GM NS SCH ×2 (08:00→20:55)
[2018-08-25 08:02] LABS: ALBUMIN 3.5 G/DL (3.4-5.0); ANION GAP 27 (8-16); BLOOD UREA NITROGEN 47 MG/DL (7-18); CALCIUM 7.8 MG/DL (8.5-10.1); CHLORIDE 104 MMOL/L (99-107); CREATININE 3.91 MG/DL (0.60-1.10); GLUCOSE 100 MG/DL (70-104); SODIUM 145 MMOL/L (135-145); eGFR 15 ML/MIN
[2018-08-25 08:05] LABS: POTASSIUM 6.9 MMOL/L (3.5-5.1); TOTAL CARBON DIOXIDE 14.1 MMOL/L (24-32)
[2018-08-25] MEDS: albumin (Human) 5% 250ml 250 ML IV PRN (08:40)
[2018-08-25] MEDS: propofol 1000mg/100ml bottle 100 ML IV PRN ×2 (08:42→23:12)
[2018-08-25] MEDS: ceFAZolin 1GM/D5W- ADD-VANTAGE 50 ML IV SCH (08:43)
[2018-08-25] MEDS: vancomycin/NS 1 GM ADD-VANTAGE 250 ML IV SCH ×2 (08:44→21:44)
[2018-08-25] MEDS: insulin Lispro (HumaLOG) vial - multi-dose SQ SCH ×3 (09:00→18:00)
[2018-08-25 09:05] LABS: HEMATOCRIT 25.3 % (42.0-52.0); HEMOGLOBIN 8.2 g/dl (14.0-17.9); MEAN CORPUSCULAR HEMOGLOBIN 32.4 PG (27.0-31.0); MEAN CORPUSCULAR HGB CONC 32.2 % (33.0-36.5); MEAN CORPUSCULAR VOLUME 100.5 FL (78-98); MEAN PLATELET VOLUME 8.7 FL (7.4-10.4); PLATELET COUNT 155 X10'3 (140-440); RED BLOOD COUNT 2.52 X10'6 (4.70-6.10); RED CELL DISTRIBUTION WIDTH 17.1 % (11.5-14.5)
[2018-08-25 09:14] LABS: WHITE BLOOD COUNT 167.4 X10'3 (4.5-11.0)
[2018-08-25] MEDS ORDERED: furosemide 10 MG/1 ML 10ml inj IV ONE (09:30)
[2018-08-25] MEDS: sodium bicarbonate (8.4%) inj. 150 MEQ in dextrose 5%-water 1,000 ML IV SCH ×2 (10:02→20:52)
[2018-08-25] MEDS ORDERED: calcium chloride 100 MG/1 ML inj IV ONE ×2 (10:10→12:40)
[2018-08-25 10:11] LABS: OXYGEN SATURATION (MIXED VEN) 52.7 % (60-80); PO2 MIXED VENOUS (TEMP COR) 40.7 mmHg (35-46)
[2018-08-25 10:16] LABS: ABG BASE EXCESS -19.3 mmol/L (-2.0-3.0); ABG HCO3 10.1 mmol/L (22.0-26.0); ABG OXYGEN SATURATION 89.8 % (95-98); ABG PCO2 (T) 42.5 mmHg (35.0-48.0); ABG PH (T) 7.003 (7.350-7.450); ABG PO2 (T) 91.1 mmHg (83-108); FMetHb 0.6 % (0.3-1.12); FO2Hb 89.3 % (94-100); PATIENT TEMPERATURE 38.6; PEEP 5 cm H2O; RESPIRATORY RATE 10 b/min; TIDAL VOLUME 700 mL; TOTAL HEMOGLOBIN 7.2 G/dl (14.0-18.0)
[2018-08-25] MEDS ORDERED: DOBUTamine-DoBUTrex 500mg/D5W 250 ML IV SCH ×2 (10:30→11:00)
[2018-08-25] MEDS ORDERED: DOBUTamine-DoBUTrex 500mg/D5W 250 ML IV ONE (10:34)
[2018-08-25 10:44] LABS: BANDS% (MANUAL) 1.5 % (0-10); METAMYLEOCYTES% (MANUAL) 0.5 % (0-0); TOTAL CELLS COUNTED 200
[2018-08-25 10:45] LABS: PLATELET ESTIMATE NORMAL
[2018-08-25 10:46] LABS: ANISOCYTOSIS 2+
[2018-08-25 10:48] LABS: SPHEROCYTES 1+
[2018-08-25 10:52] LABS: SMUDGE CELLS 3+
[2018-08-25 10:53] LABS: POLYCHROMASIA 1+
[2018-08-25 10:54] LABS: BURR CELLS 1+; ELLIPTOCYTES FEW; TEAR DROP CELLS FEW
[2018-08-25] MEDS: vasopressin inj. 60 UNIT in normal saline 100ml IV soln 97 ML IV SCH (11:00)
[2018-08-25] MEDS ORDERED: dextrose 50%-water 50ml dispensing syringe IV ONE ×3 (11:15→21:55)
[2018-08-25] MEDS ORDERED: methylPREDNISolone sod succ 125mg/2ml vial IV ONE (11:15)
[2018-08-25] MEDS ORDERED: methylPREDNISolone SOD SUCC 1000 MG in NORMAL SALINE 100ml IV ONE (11:20)
[2018-08-25 11:36] LABS: ABG BASE EXCESS -22.2 mmol/L (-2.0-3.0); ABG HCO3 8.1 mmol/L (22.0-26.0); ABG PCO2 (T) 40.6 mmHg (35.0-48.0); ABG PH (T) 6.928 (7.350-7.450); FCOHb 0.3 % (0.5-1.5); FMetHb 0.6 % (0.3-1.12); FO2Hb 95.1 % (94-100); MINUTE VOLUME 17 L/min; PATIENT TEMPERATURE 38.7; PEEP 5 cm H2O; RESPIRATORY RATE 14 b/min; TIDAL VOLUME 700 mL; TOTAL HEMOGLOBIN 6.5 G/dl (14.0-18.0)
[2018-08-25] MEDS ORDERED: epiNEPHrine 1 mg/ml inj IV STA (11:43)
[2018-08-25] MEDS ORDERED: calcium chloride inj. 1,000 MG in normal saline 100ml IV soln 100 ML IV PRN (11:55)
[2018-08-25] MEDS ORDERED: calcium chloride inj. 10,000 MG in normal saline 500ml IV soln 400 ML IV PRN (11:55)
[2018-08-25] MEDS ORDERED: potassium Cl 20mEq/100mL bag 100 ML IV PRN (11:55)
[2018-08-25] MEDS ORDERED: sodium phosphate inj. 30 MMOL in normal saline 250ml IV soln 250 ML IV PRN (11:55)
[2018-08-25] MEDS ORDERED: magnesium 4gm in 100ml NS 100 ML IV PRN (11:55)
[2018-08-25] MEDS ORDERED: citrate dextrose 1000ml IV sol 1,000 ML IV PRN (11:55)
[2018-08-25] MEDS: epiNEPHrine inj 5 MG, calcium chloride inj. 1,000 MG in normal saline 250ml IV soln 235 ML IV PRN ×2 (12:00→20:39)
[2018-08-25 12:02] LABS: ALBUMIN 2.9 G/DL (3.4-5.0); CHLORIDE 104 MMOL/L (99-107); MAGNESIUM 3.5 MG/DL (1.5-2.4)
[2018-08-25 12:06] LABS: MEAN CORPUSCULAR VOLUME 103.5 FL (78-98); PLATELET COUNT 115 X10'3 (140-440)
[2018-08-25] MEDS ORDERED: insulin regular, human 10 units/0.1 ml syringe IV ONE ×3 (12:15→21:55)
[2018-08-25 12:20] LABS: PHOSPHORUS 17.4 MG/DL (2.3-4.5)
[2018-08-25 12:23] LABS: WHITE BLOOD COUNT 130.1 X10'3 (4.5-11.0)
[2018-08-25 12:24] LABS: HEMATOCRIT 20.7 % (42.0-52.0)
[2018-08-25 12:30] LABS: INR 1.9 INR; PARTIAL THROMBOPLASTIN TIME 43 SECONDS (22-32); PROTHROMBIN TIME 18.5 SECONDS (9.0-12.0)
[2018-08-25 12:32] LABS: ALBUMIN/GLOBULIN RATIO 1.6 (1.1-1.5); ALKALINE PHOSPHATASE 101 IU/L (46-116); ANION GAP 34 (8-16); ASPARTATE AMINO TRANSFERASE 976 U/L (10-37); BILIRUBIN,TOTAL 2.2 MG/DL (0.1-1.0); BLOOD UREA NITROGEN 47 MG/DL (7-18); BUN/CREATININE RATIO 10.1 (5.4-32.0); CALCIUM 8.5 MG/DL (8.5-10.1); CREATININE 4.64 MG/DL (0.60-1.10); GLUCOSE 154 MG/DL (70-104); SODIUM 147 MMOL/L (135-145); TOTAL PROTEIN 4.7 G/DL (6.4-8.2); eGFR 12 ML/MIN
[2018-08-25 12:46] LABS: ALANINE AMINOTRANSFERASE 890 U/L (12-78)
[2018-08-25] MEDS: Duosol 4K/3 Ca (w/calcium) 5,000 ML HE SCH ×4 (12:47→20:38)
[2018-08-25 12:56] LABS: POTASSIUM 8.9 MMOL/L (3.5-5.1)
[2018-08-25 12:57] LABS: TOTAL CARBON DIOXIDE 8.9 MMOL/L (24-32)
[2018-08-25 13:00] LABS: ANISOCYTOSIS 2+; BURR CELLS 2+; PLATELET ESTIMATE DECREASED; TOTAL CELLS COUNTED 100
[2018-08-25 13:03] LABS: ELLIPTOCYTES FEW; POLYCHROMASIA FEW; SMUDGE CELLS 3+; SPHEROCYTES 1+; TEAR DROP CELLS FEW
[2018-08-25] MEDS: mineral oil/petrolatum ophthal oint EACHEYE SCH ×2 (14:00→20:39)
[2018-08-25] MEDS ORDERED: cefTAZidime inj 2 GM in normal saline 100ml IV soln 100 ML IV ONE (14:00)
[2018-08-25] MEDS ORDERED: amiodarone 150mg/dext, iso-os 100 ML IV ONE ×2 (14:45→14:55)
[2018-08-25] MEDS ORDERED: amiodarone/D5 360MG/200ML BAG 200 ML IV ONE (14:53)
[2018-08-25 15:01] LABS: ABG BASE EXCESS -20.1 mmol/L (-2.0-3.0); ABG HCO3 8.5 mmol/L (22.0-26.0); ABG OXYGEN SATURATION 94.1 % (95-98); ABG PCO2 (T) 29.5 mmHg (35.0-48.0); ABG PH (T) 7.076 (7.350-7.450); ABG PO2 (T) 96.7 mmHg (83-108); FCOHb 0.3 % (0.5-1.5); FMetHb 0.6 % (0.3-1.12); FO2Hb 93.3 % (94-100); MINUTE VOLUME 21 L/min; PEEP 5 cm H2O; RESPIRATORY RATE 18 b/min; TIDAL VOLUME 700 mL; TOTAL HEMOGLOBIN 8.6 G/dl (14.0-18.0)
[2018-08-25] MEDS: amiodarone/D5 360MG/200ML BAG 200 ML IV SCH ×2 (15:02→22:09)
[2018-08-25] MEDS ORDERED: aztreonam inj. 2,000 MG in normal saline 100ml IV soln 100 ML IV ONE (16:00)
[2018-08-25 16:26] LABS: HEMATOCRIT 27.9 % (42.0-52.0); MEAN CORPUSCULAR HEMOGLOBIN 30.8 PG (27.0-31.0); MEAN CORPUSCULAR HGB CONC 32.3 % (33.0-36.5); MEAN CORPUSCULAR VOLUME 95.3 FL (78-98); MEAN PLATELET VOLUME 9.4 FL (7.4-10.4); PLATELET COUNT 106 X10'3 (140-440); RED BLOOD COUNT 2.93 X10'6 (4.70-6.10); RED CELL DISTRIBUTION WIDTH 17.9 % (11.5-14.5)
[2018-08-25 16:27] LABS: ALBUMIN 3.4 G/DL (3.4-5.0); ANION GAP 35 (8-16); BLOOD UREA NITROGEN 46 MG/DL (7-18); BUN/CREATININE RATIO 10.6 (5.4-32.0); CHLORIDE 103 MMOL/L (99-107); CREATININE 4.32 MG/DL (0.60-1.10); GLUCOSE 145 MG/DL (70-104); MAGNESIUM 3.3 MG/DL (1.5-2.4); SODIUM 149 MMOL/L (135-145); eGFR 14 ML/MIN
[2018-08-25 16:33] LABS: WHITE BLOOD COUNT 140.5 X10'3 (4.5-11.0)
[2018-08-25 16:55] LABS: POTASSIUM 6.3 MMOL/L (3.5-5.1)
[2018-08-25 16:56] LABS: TOTAL CARBON DIOXIDE 11.4 MMOL/L (24-32)
[2018-08-25 17:09] LABS: ANISOCYTOSIS 2+; BURR CELLS 2+; ELLIPTOCYTES FEW; NUCLEATED RED BLOOD CELLS 2 /100WBC (0-0); PLATELET ESTIMATE DECREASED; POLYCHROMASIA FEW; TEAR DROP CELLS FEW; TOTAL CELLS COUNTED 100
[2018-08-25 17:10] LABS: SCHISTOCYTES FEW; SMUDGE CELLS 3+
[2018-08-25 17:12] LABS: SPHEROCYTES FEW
[2018-08-25 17:44] LABS: PHOSPHORUS 15.2 MG/DL (2.3-4.5)
[2018-08-25 18:08] LABS: ALBUMIN 3.4 G/DL (3.4-5.0); ANION GAP 35 (8-16); BLOOD UREA NITROGEN 46 MG/DL (7-18); BUN/CREATININE RATIO 10.5 (5.4-32.0); CHLORIDE 103 MMOL/L (99-107); GLUCOSE 124 MG/DL (70-104); MAGNESIUM 3.5 MG/DL (1.5-2.4); SODIUM 148 MMOL/L (135-145); eGFR 13 ML/MIN
[2018-08-25 18:13] LABS: POTASSIUM 6.4 MMOL/L (3.5-5.1); TOTAL CARBON DIOXIDE 9.9 MMOL/L (24-32)
[2018-08-25 18:18] LABS: HEMATOCRIT 28.4 % (42.0-52.0); HEMOGLOBIN 8.7 g/dl (14.0-17.9); MEAN CORPUSCULAR HEMOGLOBIN 29.4 PG (27.0-31.0); MEAN CORPUSCULAR HGB CONC 30.7 % (33.0-36.5); MEAN CORPUSCULAR VOLUME 95.9 FL (78-98); MEAN PLATELET VOLUME 9.5 FL (7.4-10.4); PLATELET COUNT 86 X10'3 (140-440); RED BLOOD COUNT 2.96 X10'6 (4.70-6.10)
[2018-08-25 18:30] LABS: PHOSPHORUS 15.5 MG/DL (2.3-4.5)
[2018-08-25 18:42] LABS: WHITE BLOOD COUNT 130.7 X10'3 (4.5-11.0)
[2018-08-25 18:52] LABS: NUCLEATED RED BLOOD CELLS 1 /100WBC (0-0); PLATELET ESTIMATE DECREASED; TOTAL CELLS COUNTED 100
[2018-08-25 18:54] LABS: BURR CELLS 2+; POLYCHROMASIA FEW; SCHISTOCYTES FEW
[2018-08-25 18:55] LABS: ELLIPTOCYTES FEW
[2018-08-25 18:57] LABS: SMUDGE CELLS 3+; SPHEROCYTES FEW
[2018-08-25] MEDS ORDERED: albuterol 2.5 MG/3 ML nebule CONTNEB ONE ×2 (19:10→23:30)
[2018-08-25] MEDS ORDERED: albuterol 2.5 MG/3 ML nebule ONE (19:17)
[2018-08-25 19:20] LABS: ABG BASE EXCESS -21.3 mmol/L (-2.0-3.0); ABG HCO3 7.6 mmol/L (22.0-26.0); ABG OXYGEN SATURATION 92.3 % (95-98); ABG PCO2 (T) 26.7 mmHg (35.0-48.0); ABG PH (T) 7.067 (7.350-7.450); ABG PO2 (T) 78.4 mmHg (83-108); FCOHb 0.3 % (0.5-1.5); FMetHb 0.5 % (0.3-1.12); FO2Hb 91.6 % (94-100); MINUTE VOLUME 20 L/min; PATIENT TEMPERATURE 35.8; PEEP 5 cm H2O; RESPIRATORY RATE 18 b/min; RESPIRATORY RATE (OBSERVED) 26 b/min; TIDAL VOLUME 700 mL; TOTAL HEMOGLOBIN 9.3 G/dl (14.0-18.0)
[2018-08-25 20:32] LABS: HEMOGLOBIN 8.3 g/dl (14.0-17.9); MEAN CORPUSCULAR HEMOGLOBIN 29.6 PG (27.0-31.0); MEAN CORPUSCULAR HGB CONC 30.8 % (33.0-36.5); MEAN CORPUSCULAR VOLUME 96.3 FL (78-98); MEAN PLATELET VOLUME 9.3 FL (7.4-10.4); PLATELET COUNT 91 X10'3 (140-440); RED BLOOD COUNT 2.81 X10'6 (4.70-6.10); RED CELL DISTRIBUTION WIDTH 19.1 % (11.5-14.5)
[2018-08-25 20:52] LABS: WHITE BLOOD COUNT 125.1 X10'3 (4.5-11.0)
[2018-08-25 21:06] LABS: ALBUMIN 3.1 G/DL (3.4-5.0); BLOOD UREA NITROGEN 41 MG/DL (7-18); BUN/CREATININE RATIO 10.3 (5.4-32.0); GLUCOSE 120 MG/DL (70-104); eGFR 15 ML/MIN
[2018-08-25 21:30] LABS: SODIUM 152 MMOL/L (135-145)
[2018-08-25 21:30] LABS: ABG HCO3 7.1 mmol/L (22.0-26.0); ABG PCO2 (T) 24.9 mmHg (35.0-48.0); ABG PO2 (T) 75.7 mmHg (83-108); FCOHb 0.3 % (0.5-1.5); FMetHb 0.6 % (0.3-1.12); FO2Hb 91.2 % (94-100); MINUTE VOLUME 19 L/min; PATIENT TEMPERATURE 35.1; PEEP 5 cm H2O; RESPIRATORY RATE 18 b/min; RESPIRATORY RATE (OBSERVED) 25 b/min; TIDAL VOLUME 700 mL; TOTAL HEMOGLOBIN 8.7 G/dl (14.0-18.0)
[2018-08-25 21:35] LABS: PHOSPHORUS 13.9 MG/DL (2.3-4.5); POTASSIUM 6.2 MMOL/L (3.5-5.1); TOTAL CARBON DIOXIDE 11.1 MMOL/L (24-32)
[2018-08-25 21:36] LABS: ANION GAP 39 (8-16); CHLORIDE 102 MMOL/L (99-107)
[2018-08-25 21:41] LABS: PLATELET ESTIMATE DECREASED; TOTAL CELLS COUNTED 100
[2018-08-25 21:42] LABS: ANISOCYTOSIS 2+; BURR CELLS 2+; ELLIPTOCYTES FEW; POLYCHROMASIA FEW; SCHISTOCYTES FEW
[2018-08-25 21:43] LABS: SMUDGE CELLS 3+
[2018-08-25 21:49] LABS: LACTATE DEHYDROGENASE 4922 U/L (85-227)
[2018-08-25] MEDS ORDERED: normal saline 1000ml 1,000 ML IVB ONE (21:55)
[2018-08-25] MEDS ORDERED: calcium gluconate inj. 1 GM in normal saline 100ml IV soln 90 ML IV ONE (21:55)
[2018-08-25] MEDS ORDERED: normal saline 1000ml 1,000 ML IV ONE ×2 (21:55)
[2018-08-25 22:54] LABS: ALBUMIN 2.7 G/DL (3.4-5.0); ALKALINE PHOSPHATASE 118 IU/L (46-116); BILIRUBIN,TOTAL 4.1 MG/DL (0.1-1.0); BLOOD UREA NITROGEN 39 MG/DL (7-18); BUN/CREATININE RATIO 10.9 (5.4-32.0); CALCIUM 8.9 MG/DL (8.5-10.1); CREATININE 3.59 MG/DL (0.60-1.10); GLUCOSE 200 MG/DL (70-104); MAGNESIUM 2.8 MG/DL (1.5-2.4); SODIUM 149 MMOL/L (135-145); eGFR 17 ML/MIN
[2018-08-25] MEDS ORDERED: pantoprazole 40 MG vial IV ONE (22:55)
[2018-08-25 23:12] LABS: ALBUMIN/GLOBULIN RATIO 1.9 (1.1-1.5); TOTAL PROTEIN 4.1 G/DL (6.4-8.2)
[2018-08-25] MEDS: allopurinol 300 MG tablet PO SCH (23:12)
[2018-08-25 23:13] LABS: ANION GAP 35 (8-16); CHLORIDE 104 MMOL/L (99-107)
[2018-08-25 23:14] LABS: PHOSPHORUS 13.3 MG/DL (2.3-4.5)
[2018-08-25 23:16] LABS: POTASSIUM 6.2 MMOL/L (3.5-5.1); TOTAL CARBON DIOXIDE 9.7 MMOL/L (24-32)
[2018-08-25 23:32] LABS: ALANINE AMINOTRANSFERASE 3661 U/L (12-78); ASPARTATE AMINO TRANSFERASE 4412 U/L (10-37)
[2018-08-26] VITALS (13 sets, daily range): BP systolic 20–74; BP diastolic 40–54
[2018-08-26] MEDS: albumin (Human) 5% 250ml 250 ML IV PRN ×2 (01:37→03:39)
[2018-08-26] MEDS: sodium bicarbonate (8.4%) 1 mEq/ml syringe IV PRN ×4 (01:39→10:30)
[2018-08-26 02:30] LABS: ABG BASE EXCESS -22.6 mmol/L (-2.0-3.0); ABG HCO3 6.8 mmol/L (22.0-26.0); ABG OXYGEN SATURATION 89.4 % (95-98); ABG PCO2 (T) 24.3 mmHg (35.0-48.0); ABG PH (T) 7.043 (7.350-7.450); ABG PO2 (T) 62.1 mmHg (83-108); FCOHb 0.3 % (0.5-1.5); FMetHb 0.5 % (0.3-1.12); FO2Hb 88.7 % (94-100); MINUTE VOLUME 18 L/min; PATIENT TEMPERATURE 34.1; PEEP 5 cm H2O; RESPIRATORY RATE 18 b/min; RESPIRATORY RATE (OBSERVED) 24 b/min; TIDAL VOLUME 700 mL; TOTAL HEMOGLOBIN 7.4 G/dl (14.0-18.0)
[2018-08-26] MEDS: mineral oil/petrolatum ophthal oint EACHEYE SCH ×2 (02:42→08:55)
[2018-08-26] MEDS ORDERED: methylPREDNISolone sod succ 125mg/2ml vial IV ONE (02:50)
[2018-08-26] MEDS: amiodarone/D5 360MG/200ML BAG 200 ML IV SCH ×2 (02:53→08:45)
[2018-08-26 02:58] LABS: HEMATOCRIT 23.4 % (42.0-52.0); MEAN CORPUSCULAR HEMOGLOBIN 29.3 PG (27.0-31.0); MEAN CORPUSCULAR VOLUME 97.7 FL (78-98); PLATELET COUNT 63 X10'3 (140-440); RED CELL DISTRIBUTION WIDTH 21.2 % (11.5-14.5)
[2018-08-26] MEDS ORDERED: VANCOMYCIN LEVEL IV SCH (03:00)
[2018-08-26] MEDS: calcium chloride 100 MG/1 ML inj IV PRN ×3 (03:01→07:00)
[2018-08-26 03:13] LABS: INR 3.3 INR; PARTIAL THROMBOPLASTIN TIME 52 SECONDS (22-32); PROTHROMBIN TIME 31.8 SECONDS (9.0-12.0)
[2018-08-26 03:22] LABS: ALBUMIN 3.3 G/DL (3.4-5.0); ALKALINE PHOSPHATASE 150 IU/L (46-116); ANION GAP 32 (8-16); BILIRUBIN,TOTAL 5.1 MG/DL (0.1-1.0); BLOOD UREA NITROGEN 33 MG/DL (7-18); BUN/CREATININE RATIO 10.2 (5.4-32.0); CALCIUM 8.4 MG/DL (8.5-10.1); CHLORIDE 104 MMOL/L (99-107); CREATININE 3.25 MG/DL (0.60-1.10); GLUCOSE 102 MG/DL (70-104); MAGNESIUM 2.6 MG/DL (1.5-2.4); SODIUM 145 MMOL/L (135-145); eGFR 19 ML/MIN
[2018-08-26] MEDS: Duosol 4K/3 Ca (w/calcium) 5,000 ML HE SCH (03:23)
[2018-08-26 03:25] LABS: WHITE BLOOD COUNT 97.7 X10'3 (4.5-11.0)
[2018-08-26] MEDS: epiNEPHrine inj 5 MG, calcium chloride inj. 1,000 MG in normal saline 250ml IV soln 235 ML IV PRN ×2 (03:38→08:41)
[2018-08-26 03:52] LABS: ALBUMIN/GLOBULIN RATIO 2.5 (1.1-1.5); TOTAL PROTEIN 4.6 G/DL (6.4-8.2)
[2018-08-26 03:54] LABS: TOTAL CARBON DIOXIDE 8.8 MMOL/L (24-32)
[2018-08-26 03:56] LABS: TOTAL CELLS COUNTED 100
[2018-08-26 03:57] LABS: PLATELET ESTIMATE DECREASED
[2018-08-26 03:58] LABS: ANISOCYTOSIS 2+; BURR CELLS 2+; POLYCHROMASIA FEW; SCHISTOCYTES FEW; SMUDGE CELLS 3+
[2018-08-26 04:13] LABS: ALANINE AMINOTRANSFERASE 2617 U/L (12-78); ASPARTATE AMINO TRANSFERASE 3738 U/L (10-37)
[2018-08-26] MEDS: sodium bicarbonate (8.4%) inj. 150 MEQ in dextrose 5%-water 1,000 ML IV SCH ×2 (04:28→10:46)
[2018-08-26] MEDS: insulin regular, human inj. 100 UNITS in normal saline 100ml IV soln 100 ML IV SCH ×2 (05:30)
[2018-08-26] MEDS: NORepinephrine 8mg/ 250ml NS 250 ML IV SCH ×3 (06:12→08:43)
[2018-08-26] MEDS: vasopressin inj. 60 UNIT in normal saline 100ml IV soln 97 ML IV SCH ×2 (06:13→06:58)
[2018-08-26 06:30] LABS: ALBUMIN 3.1 G/DL (3.4-5.0); ALKALINE PHOSPHATASE 182 IU/L (46-116); BILIRUBIN,TOTAL 5.3 MG/DL (0.1-1.0); BLOOD UREA NITROGEN 29 MG/DL (7-18); BUN/CREATININE RATIO 9.7 (5.4-32.0); CHLORIDE 104 MMOL/L (99-107); GLUCOSE 74 MG/DL (70-104); eGFR 21 ML/MIN
[2018-08-26 06:44] LABS: MEAN CORPUSCULAR HEMOGLOBIN 30.3 PG (27.0-31.0); MEAN CORPUSCULAR HGB CONC 31.1 % (33.0-36.5); MEAN CORPUSCULAR VOLUME 97.6 FL (78-98); MEAN PLATELET VOLUME 9.6 FL (7.4-10.4); RED BLOOD COUNT 2.24 X10'6 (4.70-6.10); RED CELL DISTRIBUTION WIDTH 21.4 % (11.5-14.5)
[2018-08-26 07:15] LABS: ALBUMIN/GLOBULIN RATIO 2.1 (1.1-1.5); TOTAL PROTEIN 4.6 G/DL (6.4-8.2)
[2018-08-26 07:16] LABS: ALANINE AMINOTRANSFERASE 6681 U/L (12-78); ASPARTATE AMINO TRANSFERASE > 7000 U/L (10-37)
[2018-08-26 07:17] LABS: ANION GAP 34 (8-16); SODIUM 147 MMOL/L (135-145)
[2018-08-26 07:19] LABS: HEMOGLOBIN 6.8 g/dl (14.0-17.9); WHITE BLOOD COUNT 86.3 X10'3 (4.5-11.0)
[2018-08-26 07:20] LABS: HEMATOCRIT 21.9 % (42.0-52.0); PLATELET COUNT 45 X10'3 (140-440)
[2018-08-26 07:21] LABS: ANISOCYTOSIS 3+; BURR CELLS 2+; PLATELET ESTIMATE DECREASED; POTASSIUM 7.5 MMOL/L (3.5-5.1)
[2018-08-26 07:23] LABS: CALCIUM 12.5 MG/DL (8.5-10.1)
[2018-08-26] MEDS ORDERED: pantoprazole 40mg Tablet.DR PO SCH (07:30)
[2018-08-26] MEDS ORDERED: pantoprazole 40 MG vial IV SCH (08:00)
[2018-08-26] MEDS: aspirin 325mg tablet, delayed-release (Ecotrin) PO SCH (08:00)
[2018-08-26] MEDS: multivitamins, therapeutics tablet PO SCH (08:00)
[2018-08-26] MEDS: cetirizine 10mg tablet PO SCH (08:00)
[2018-08-26] MEDS: docusate sod 100mg capsule PO SCH (08:00)
[2018-08-26] MEDS: metoprolol tartrate 12.5mg (1/2 tablet) PO SCH (08:00)
[2018-08-26] MEDS: mupirocin 2% ointment 22GM NS SCH (08:00)
[2018-08-26] MEDS: vitamin D (cholecalciferol) 1,000 unit tablet PO SCH (08:00)
[2018-08-26] MEDS ORDERED: aztreonam inj. 1,000 MG in normal saline 100ml IV soln 100 ML IV SCH (08:00)
[2018-08-26] MEDS: atorvastatin 10mg tablet PO SCH (08:00)
[2018-08-26] MEDS: insulin Lispro (HumaLOG) vial - multi-dose SQ SCH (09:00)
[2018-08-26] MEDS: sodium chloride 0.45% 1,000 ML IV SCH (09:04)
[2018-08-26 09:30] LABS: ABG BASE EXCESS -21.1 mmol/L (-2.0-3.0); ABG HCO3 7.2 mmol/L (22.0-26.0); ABG OXYGEN SATURATION 91.5 % (95-98); ABG PCO2 (T) 22.5 mmHg (35.0-48.0); ABG PH (T) 7.107 (7.350-7.450); ABG PO2 (T) 69.2 mmHg (83-108); FMetHb 0.8 % (0.3-1.12); FO2Hb 90.8 % (94-100); MINUTE VOLUME 17 L/min; PATIENT TEMPERATURE 34.1; PEEP 5 cm H2O; RESPIRATORY RATE 18 b/min; TIDAL VOLUME 700 mL; TOTAL HEMOGLOBIN 6.7 G/dl (14.0-18.0)
[2018-08-26] MEDS ORDERED: epiNEPHrine 0.1mg/ml 10ml syringe ONE ×2 (09:55→12:32)
[2018-08-26] MEDS ORDERED: normal saline 1000ml 100 ML IV PRN (11:01)
[2018-08-26] MEDS ORDERED: normal saline 1000ml 250 ML IV PRN (11:01)
[2018-08-26] MEDS ORDERED: heparin 1,000 units/ml 10ml inj HE ONE ×2 (11:05)
[2018-08-26] MEDS ORDERED: albumin (human) 25% 100ml IV 100 ML IV PRN (11:05)
[2018-08-26] MEDS ORDERED: phenylephrine inj 10 MG in normal saline 250ml IV soln 250 ML IV PRN (11:06)
[2018-08-26] MEDS: allopurinol 300 MG tablet PO SCH (11:09)
[2018-08-26 11:55] LABS: ABG BASE EXCESS -20.4 mmol/L (-2.0-3.0); ABG OXYGEN SATURATION 86.2 % (95-98); ABG PCO2 (T) 36.5 mmHg (35.0-48.0); ABG PO2 (T) 73.3 mmHg (83-108); FCOHb 0.7 % (0.5-1.5); FMetHb 0.4 % (0.3-1.12); FO2Hb 85.3 % (94-100); TOTAL HEMOGLOBIN 6.4 G/dl (14.0-18.0)
[2018-08-26 12:12] LABS: ALKALINE PHOSPHATASE 275 IU/L (46-116); ANION GAP 32 (8-16); BILIRUBIN,TOTAL 5.6 MG/DL (0.1-1.0); BLOOD UREA NITROGEN 24 MG/DL (7-18); BUN/CREATININE RATIO 8.7 (5.4-32.0); CALCIUM 10.1 MG/DL (8.5-10.1); CHLORIDE 102 MMOL/L (99-107); CREATININE 2.76 MG/DL (0.60-1.10); GLUCOSE 101 MG/DL (70-104); SODIUM 144 MMOL/L (135-145); eGFR 23 ML/MIN
[2018-08-26 12:15] LABS: ALBUMIN/GLOBULIN RATIO 2.3 (1.1-1.5); TOTAL PROTEIN 4.3 G/DL (6.4-8.2)
[2018-08-26 12:45] LABS: ALANINE AMINOTRANSFERASE > 7000 U/L (12-78); ASPARTATE AMINO TRANSFERASE > 7000 U/L (10-37)
[2018-08-26 12:47] LABS: POTASSIUM 8.8 MMOL/L (3.5-5.1)
[2018-08-26] MEDS ORDERED: Duosol 4k/NO Calcium 5,000 ML HE SCH (13:00)
== END 2018-08-26 15:08 | disposition expired | DRG 216 ==
LOC: SSTAY O 05:05 → PCU 3S 13:04 → PACU 08-24 13:32 → ICU 2S 08-24 16:25
PROVIDERS: ADMIT Internal Medicine Interventional Cardiology; ATTEND Thoracic Surgery (Cardiothoracic Vascular Surgery)
PROC: 4A023N7 Measurement of Cardiac Sampling and Pressure, Left Heart, Percutaneous Approach (ICD-10-PCS; principal; 2018-08-22)
PROC: B2111ZZ Fluoroscopy of Multiple Coronary Arteries using Low Osmolar Contrast (ICD-10-PCS; 2018-08-22)
PROC: B2151ZZ Fluoroscopy of Left Heart using Low Osmolar Contrast (ICD-10-PCS; 2018-08-22)
PROC: 02L70ZK Occlusion of Left Atrial Appendage, Open Approach (ICD-10-PCS; 2018-08-24)
PROC: 5A1221Z Performance of Cardiac Output, Continuous (ICD-10-PCS; 2018-08-24)
PROC: B246ZZ4 Ultrasonography of Right and Left Heart, Transesophageal (ICD-10-PCS; 2018-08-24)
PROC: X2RF032 Replacement of Aortic Valve using Zooplastic Tissue, Rapid Deployment Technique, Open Approach, New Technology Group 2 (ICD-10-PCS; 2018-08-24)
PROC: 05H533Z Insertion of Infusion Device into Right Subclavian Vein, Percutaneous Approach (ICD-10-PCS; 2018-08-24)
PROC: B546ZZA Ultrasonography of Right Subclavian Vein, Guidance (ICD-10-PCS; 2018-08-24)
PROC: 30233R1 Transfusion of Nonautologous Platelets into Peripheral Vein, Percutaneous Approach (ICD-10-PCS; 2018-08-24)
PROC: 30233M1 Transfusion of Nonautologous Plasma Cryoprecipitate into Peripheral Vein, Percutaneous Approach (ICD-10-PCS; 2018-08-24)
PROC: 30233M1 Transfusion of Nonautologous Plasma Cryoprecipitate into Peripheral Vein, Percutaneous Approach (ICD-10-PCS; 2018-08-25)
PROC: 30233N1 Transfusion of Nonautologous Red Blood Cells into Peripheral Vein, Percutaneous Approach (ICD-10-PCS; 2018-08-25)
PROC: 5A1D90Z Performance of Urinary Filtration, Continuous, Greater than 18 hours Per Day (ICD-10-PCS; 2018-08-26)
PROC: 5A12012 Performance of Cardiac Output, Single, Manual (ICD-10-PCS; 2018-08-26)
DX: I35.0 Nonrheumatic aortic (valve) stenosis (principal); E88.3 Tumor lysis syndrome; K72.00 Acute and subacute hepatic failure without coma; C85.90 Non-Hodgkin lymphoma, unspecified, unspecified site; E87.2 Acidosis; N17.9 Acute kidney failure, unspecified; I10 Essential (primary) hypertension; K21.9 Gastro-esophageal reflux disease without esophagitis; E78.5 Hyperlipidemia, unspecified; D69.6 Thrombocytopenia, unspecified; I48.0 Paroxysmal atrial fibrillation; E87.5 Hyperkalemia; I46.9 Cardiac arrest, cause unspecified; Z79.01 Long term (current) use of anticoagulants
CPT/HCPCS: 0232T; 92950; 93312; 93325; 93458; 36415; 36600; 71045; 71046; 80048; 80053; 80069; 80202; 82330; 82435; 82803; 82810; 82947; 82948; 83036; 83605; 83615; 83735; 84100; 84132; 84145; 84295; 84550; 85007; 85018; 85025; 85027; 85347; 85384; 85610; 85730; 86885; 86900; 86901; 86920; 87040; 87070; 87077; 87185; 93005; 93308; 93880; 93971; 94002; 94003; 94010; 94640; 94760; 97116; 97161; 97530; 99152; 99153; A4620; A6255; A6257; A6402; A6449; A7000; A7048; C1751; C1769; C9113; G0257; G0378; J0171; J0282; J0461; J0610; J0690; J0713; J1250; J1644; J1815; J1940; J2001; J2060; J2150; J2250; J2270; J2310; J2370; J2704; J2720; J2930; J3010; J3370; J3475; J3490; J7030; J7060; J7120; P9012; P9016; P9035; P9045; P9047; Q0163; Q9967